=== PATIENT | female | born 1980 | race Caucasian/White ===

== ENCOUNTER 2016-07-09 20:35 | Emergency (ER) | payer BC ==
[~2016-07-09] VITALS: Ht 170.2 cm; Wt 65.0 kg
[~2016-07-09 20:35] MED LIST: IRON18TA2 IV; MULTLIQ7 IV; PERC5TAB12 PO; [UNRECOGNIZED DRUG - CODE] PO
[2016-07-09 20:37] VITALS: BP 141/95; PULSE 111; RESP 20; TEMP 97.8; O2SAT 97
[2016-07-09] MEDS ORDERED: SODIUM CHLOR 0.9% 1000 ML INJ 1,000 ML IV SCH (22:16)
--- NOTE | 2016-07-09 22:26 | PD ---
HPI Chief Complaint: Flank/Kidney Pain Time Seen by Provider: 22:02 Travel History International Travel<30 days: No Contact w/Intl Traveler<30days: No Traveled to known affect area: No History of Present Illness HPI 35yo F with PMH of nephrolithiasis and mitochondrial oxidative disease presents with c/o left back pain that radiates to left lower abdomen for a few days but worst in the last 2 hours. +Nausea. Denies any fever, vomiting, chest pain, sob, dysuria, hematuria, vaginal discharge or bleeding. 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) ?: Not : 10 Para: 3 Miscarriage: 7 Dilation and Curettage (D&C): Yes (X 1) Past Surgical History Abdominal Surgery: Yes (GASTRIC BYPASS) AICD: No Gynecologic Surgery: Yes (incompt cervix has had cerclage) Joint Replacement: No Pacemaker: No Other Surgery: Yes (Gastric bypass) Social History Alcohol Use: No Tobacco Use: No Substance Use: No Allergies-Medications (Allergen,Severity, Reaction): Coded Allergies: Contrast Media (Verified Allergy, Severe, ANAPHYLACTIC SHOCK, 07/11/16) IODINATED CONTRAST MEDIA Penicillin (Verified Allergy, Severe, Anaphylaxis, 07/11/16) Iodine (Verified Allergy, Unknown, 07/11/16) Reported Meds & Prescriptions Reported Meds & Active Scripts Active Zofran (Ondansetron HCl) 4 Mg Tab 4 Mg PO Q12HR PRN Flomax (Tamsulosin HCl) 0.4 Mg Cap 0.4 Mg PO HS 5 Days Percocet (Oxycodone-Acetaminophen) 5-325 mg Tab 1 Tab PO Q4H PRN Reported Propranolol (Propranolol HCl) 10 Mg Tab 10 Mg PO Q12HR Review of Systems Except as stated in HPI: all other systems reviewed are Neg Physical Exam Narrative GENERAL: 35yo F in mild distress. SKIN: Focused skin assessment warm/dry. HEAD: Atraumatic. Normocephalic. EYES: Pupils equal and round. No scleral icterus. No injection or drainage. CARDIOVASCULAR: Regular rate and rhythm. No murmur appreciated. RESPIRATORY: No accessory muscle use. Clear to auscultation. Breath sounds equal bilaterally. GASTROINTESTINAL: Abdomen soft, +TTP LLQ. No rebound tenderness or guarding. BACK: +CVA tenderness on left. MUSCULOSKELETAL: No obvious deformities. No clubbing. No cyanosis. No edema. NEUROLOGICAL: Awake and alert. No obvious cranial nerve deficits. Motor grossly within normal limits. Normal speech. PSYCHIATRIC: Appropriate mood and affect; insight and judgment normal. Data Data Last Documented VS Vital Signs Date Time Temp Pulse Resp B/P Pulse Ox O2 Delivery O2 Flow Rate FiO2 07/10/16 01:00 95 07/09/16 20:37 97.8 20 141/95 97 Room Air Orders Complete Blood Count With Diff (07/09/16 22:16) Comprehensive Metabolic Panel (07/09/16 22:16) Lipase (07/09/16 22:16) Urinalysis - C+S If Indicated (07/09/16 22:16) Ct Abd/Pel W/O Iv Contrast (07/09/16 22:16) Iv Access Insert/Monitor (07/09/16 22:16) Ecg Monitoring (07/09/16 22:16) Oximetry (07/09/16 22:16) Ondansetron Inj (Zofran Inj) (07/09/16 22:30) Sodium Chlor 0.9% 1000 Ml Inj (Ns 1000 M (07/09/16 22:16) Sodium Chloride 0.9% Flush (Ns Flush) (07/09/16 22:30) Ketorolac Inj (Toradol Inj) (07/09/16 22:30) Ed Urine Pregnancytest Poc (07/09/16 22:16) Morphine Inj (Morphine Inj) (07/09/16 23:30) Labs Laboratory Tests Test 07/09/16 07/09/16 22:30 23:45 Sodium Level 141 MEQ/L Potassium Level 3.8 MEQ/L Chloride Level 105 MEQ/L Carbon Dioxide Level 28.1 MEQ/L Anion Gap 8 MEQ/L Blood Urea Nitrogen 14 MG/DL Creatinine 0.65 MG/DL Estimat Glomerular Filtration 103 ML/MIN Rate Random Glucose 92 MG/DL Calcium Level 8.8 MG/DL Total Bilirubin 0.2 MG/DL Aspartate Amino Transf 16 U/L (AST/SGOT) Alanine Aminotransferase 23 U/L (ALT/SGPT) Alkaline Phosphatase 65 U/L Total Protein 7.3 GM/DL Albumin 3.9 GM/DL Lipase 308 U/L Urine Color YELLOW Urine Turbidity CLEAR Urine pH 5.5 Urine Specific [place] 1.024 Urine Protein TRACE mg/dL Urine Glucose (UA) NEG mg/dL Urine Ketones NEG mg/dL Urine Occult Blood NEG Urine Nitrite NEG Urine Bilirubin NEG Urine Urobilinogen LESS THAN 2.0 MG/DL Urine Leukocyte Esterase NEG Urine RBC 4 /hpf Urine WBC 1 /hpf Urine Squamous Epithelial 1 /hpf Cells Urine Mucus FEW /lpf Microscopic Urinalysis Comment CULT NOT INDICATED White Blood Count 6.5 TH/MM3 Red Blood Count 4.06 MIL/MM3 Hemoglobin 11.4 GM/DL Hematocrit 35.4 % Mean Corpuscular Volume 87.4 FL Mean Corpuscular Hemoglobin 28.1 PG Mean Corpuscular Hemoglobin 32.1 % Concent Red Cell Distribution Width 14.9 % Platelet Count 307 TH/MM3 Mean Platelet Volume 8.2 FL Neutrophils (%) (Auto) 57.6 % Lymphocytes (%) (Auto) 32.0 % Monocytes (%) (Auto) 7.0 % Eosinophils (%) (Auto) 2.4 % Basophils (%) (Auto) 1.0 % Neutrophils # (Auto) 3.8 TH/MM3 Lymphocytes # (Auto) 2.1 TH/MM3 Monocytes # (Auto) 0.5 TH/MM3 Eosinophils # (Auto) 0.2 TH/MM3 Basophils # (Auto) 0.1 TH/MM3 CBC Comment DIFF FINAL Differential Comment MDM Medical Decision Making Medical Screen Exam Complete: Yes Emergency Medical Condition: Yes Interpretation(s) Laboratory Tests Test 07/09/16 07/09/16 22:30 23:45 Sodium Level 141 MEQ/L (136-145) Potassium Level 3.8 MEQ/L (3.5-5.1) Chloride Level 105 MEQ/L (98-107) Carbon Dioxide Level 28.1 MEQ/L (21.0-32.0) Anion Gap 8 MEQ/L (5-15) Blood Urea Nitrogen 14 MG/DL (7-18) Creatinine 0.65 MG/DL (0.50-1.00) Estimat Glomerular Filtration 103 ML/MIN Rate (>89) Random Glucose 92 MG/DL (74-106) Calcium Level 8.8 MG/DL (8.5-10.1) Total Bilirubin 0.2 MG/DL (0.2-1.0) Aspartate Amino Transf 16 U/L (15-37) (AST/SGOT) Alanine Aminotransferase 23 U/L (10-53) (ALT/SGPT) Alkaline Phosphatase 65 U/L (45-117) Total Protein 7.3 GM/DL (6.4-8.2) Albumin 3.9 GM/DL (3.4-5.0) Lipase 308 U/L (73-393) Urine Color YELLOW (YELLW/STRAW) Urine Turbidity CLEAR (CLEAR) Urine pH 5.5 (5.0-8.5) Urine Specific [place] 1.024 (1.002-1.035) Urine Protein TRACE mg/dL (NEG-TRACE) Urine Glucose (UA) NEG mg/dL (NEG) Urine Ketones NEG mg/dL (NEG) Urine Occult Blood NEG (NEG) Urine Nitrite NEG (NEG) Urine Bilirubin NEG (NEG) Urine Urobilinogen LESS THAN 2.0 MG/DL (LESS THAN 2.0) Urine Leukocyte Esterase NEG (NEG) Urine RBC 4 /hpf (0-3) Urine WBC 1 /hpf (0-5) Urine Squamous Epithelial 1 /hpf (0-5) Cells Urine Mucus FEW /lpf (OCC) Microscopic Urinalysis Comment CULT NOT INDICATED White Blood Count 6.5 TH/MM3 (4.0-11.0) Red Blood Count 4.06 MIL/MM3 (4.00-5.30) Hemoglobin 11.4 GM/DL (11.6-15.3) Hematocrit 35.4 % (35.0-46.0) Mean Corpuscular Volume 87.4 FL (80.0-100.0) Mean Corpuscular Hemoglobin 28.1 PG (27.0-34.0) Mean Corpuscular Hemoglobin 32.1 % Concent (32.0-36.0) Red Cell Distribution Width 14.9 % (11.6-17.2) Platelet Count 307 TH/MM3 (150-450) Mean Platelet Volume 8.2 FL (7.0-11.0) Neutrophils (%) (Auto) 57.6 % (16.0-70.0) Lymphocytes (%) (Auto) 32.0 % (9.0-44.0) Monocytes (%) (Auto) 7.0 % (0.0-8.0) Eosinophils (%) (Auto) 2.4 % (0.0-4.0) Basophils (%) (Auto) 1.0 % (0.0-2.0) Neutrophils # (Auto) 3.8 TH/MM3 (1.8-7.7) Lymphocytes # (Auto) 2.1 TH/MM3 (1.0-4.8) Monocytes # (Auto) 0.5 TH/MM3 (0-0.9) Eosinophils # (Auto) 0.2 TH/MM3 (0-0.4) Basophils # (Auto) 0.1 TH/MM3 (0-0.2) CBC Comment DIFF FINAL Differential Comment Differential Diagnosis Nephrolithiasis vs. pyelonephritis vs. diverticulitis Narrative Course 35yo F with left flank pain that is worst for 2 hours. Labs reviewed, no leukocytosis. Creatinine normal at 0.65. UA showed 4 RBC. No leukocyte or nitrite. CTa/p showed moderate to severe hydronephrosis left kidney due to approximately 5mm left UVJ stone. Pt given toradol and zofran but didnt help with pain. Pt then given 6mg IV morphine and states pain has improved. Pt was able to urinate in the ED. Discussed with Dr. Dey who is the urologist translational specialist regarding the stone and hydronephrosis. State that she can follow up with him in the clinic next week as long as pain controlled. Pt's pain is currently control and is afebrile. Will try outpatient treatment and follow up first and instructed pt to return to the ED immediately if her pain is not control or she is not tolerating PO. Tolerating PO currently. Strict return precautions given. Diagnosis Primary Impression: Left ureteral stone Referrals: Dk Dey MD call for appointment Moderate to severe left hydronephrosis secondary to 5mm UVJ stone Patient Instructions: General Instructions Departure Forms: Tests/Procedures Additional Instructions: Please call Dr. Dey's office Tuesday and follow up with Dr. Dey on TuesdayJuly 12. Please return to the ED immediately if you have worsening symptoms, fever, cant keep anything down, or not urinating. Med/Other Pt SpecificInfo: Prescription(s) given Scripts Ondansetron (Zofran)4 Mg Tab4 Mg PO Q12HR PRN (NAUSEA OR VOMITING) #10 TAB Ref 0 Prov:Genet Mccall DO 07/10/16 Tamsulosin (Flomax)0.4 Mg Cap0.4 Mg PO HS 5 Days Ref 0 Prov:Genet Mccall DO 07/10/16 Oxycodone-Acetaminophen (Percocet)5-325 mg Tab1 Tab PO Q4H PRN (PAIN) #20 TAB Ref 0 Prov:Genet Mccall DO 07/10/16 Disposition: 01 DISCHARGE HOME Condition: Stable Genet Mccall DO Jul 09, 2016 22:26
[2016-07-09] MEDS ORDERED: ONDANSETRON HCL 4 MG/2 ML VIAL IVP ONE (22:30)
[2016-07-09] MEDS ORDERED: KETOROLAC TROMETHAMINE 30 MG/ML (IVP) VIAL IVP ONE (22:30)
[2016-07-09] MEDS ORDERED: SODIUM CHLORIDE 0.9% FLUSH 10 ML FLUSH IV FLUSH PRN (22:30)
[2016-07-09 23:19] LABS: BLOOD, URINE NEG (NEG); COMMENT (UR) CULT NOT INDICATED; CULTURE IF INDICATED CULT NOT INDICATED; GLUCOSE,URINE NEG (NEG); KETONE, URINE NEG (NEG); MUCUS URINE FEW /lpf (OCC); NITRITE,URINE NEG (NEG); PH, URINE 5.5 (5.0-8.5); SQUAMOUS EPITHELIAL CELL URINE 1 /hpf (0-5); URINE COLOR YELLOW (YELLW/STRAW)
[2016-07-09] MEDS ORDERED: MORPHINE SULFATE 8 MG/ML INJ IV PUSH ONE (23:30)
[2016-07-09 23:31] LABS: ALT (GPT) 23 U/L (10-53); ANION GAP 8 MEQ/L (5-15); AST (GOT) 16 U/L (15-37); BICARBONATE 28.1 MEQ/L (21.0-32.0); BLOOD UREA NITROGEN 14 MG/DL (7-18); CHLORIDE 105 MEQ/L (98-107); GLOMERULAR FILTRATION RATE 103 ML/MIN (>89); POTASSIUM 3.8 MEQ/L (3.5-5.1); SODIUM (NA) 141 MEQ/L (136-145)
[2016-07-09 23:33] LABS: ALKALINE PHOSPHATASE 65 U/L (45-117); TOTAL BILIRUBIN ADULT 0.2 MG/DL (0.2-1.0)
[2016-07-10 00:02] LABS: AUTOMATED NEUTROPHIL # 3.8 TH/MM3 (1.8-7.7); BASOPHIL # 0.1 TH/MM3 (0-0.2); EOSINOPHIL # 0.2 TH/MM3 (0-0.4); EOSINOPHIL % 2.4 % (0.0-4.0); HEMATOCRIT 35.4 % (35.0-46.0); HEMO FLAGS DIFF FINAL; LYMPHOCYTE # 2.1 TH/MM3 (1.0-4.8); MEAN CELL VOLUME 87.4 FL (80.0-100.0); MEAN CORPUSCULAR HEMOGLOBIN 28.1 PG (27.0-34.0); MEAN CORPUSCULAR HGB CONC 32.1 % (32.0-36.0); NEUT % 57.6 % (16.0-70.0); PLATELET COUNT 307 TH/MM3 (150-450); RED BLOOD COUNT 4.06 MIL/MM3 (4.00-5.30); RED CELL DISTRIBUTION WIDTH 14.9 % (11.6-17.2); WHITE BLOOD COUNT 6.5 TH/MM3 (4.0-11.0)
--- NOTE | 2016-07-10 00:06 | RADRPT ---
EXAM DATE/TIME: 07/09/2016 23:54 [facility] COMPARISON: No previous studies available for comparison. INDICATIONS : Left flank pain with nausea and vomiting. ORAL CONTRAST: No oral contrast ingested. RADIATION DOSE: 7.89 CTDIvol (mGy) MEDICAL HISTORY : Renal calculi. Hypertension. SURGICAL HISTORY : Gastric bypass. ENCOUNTER: Initial ACUITY: 3 days PAIN SCALE: 7/10 LOCATION: Left flank TECHNIQUE: Volumetric scanning of the abdomen and pelvis was performed. Using automated exposure control and ad justment of the mA and/or kV according to patient size, radiation dose was kept as low as reasonably achievable to obtain optimal diagnostic quality images. FINDINGS: CT Abdomen: There is moderate to severe hydronephrosis and hydroureter on the left side due to and ap proximate 5 mm left UVJ stone. There is evidence for prior gastric bypass. The liver, spleen, pancrea s, right kidney, adrenals are unremarkable. There is no evidence for any appreciable pathological brent nopathy, free fluid, or bowel obstruction. CT pelvis: There is no evidence for mass, abscess formation, or any significant adenopathy within the pelvis. CONCLUSION: Moderate to severe hydronephrosis left kidney due to approximate 5 mm left UVJ stone. Hiro Lopez MD on July 10, 2016 at 0:01 Board Certified Radiologist. This report was verified electronically.
[2016-07-10] MEDS ORDERED: ZOFR4TAB PO ×2 (00:38→00:47)
[2016-07-10] MEDS ORDERED: TAMS5CAP PO (00:38)
[2016-07-10] MEDS ORDERED: PERC5TAB12 PO (00:38)
[2016-07-10 01:00] VITALS: PULSE 95
[2016-07-11] MEDS ORDERED: PROP10TA6 PO (11:18)
== END 2016-07-10 01:55 | disposition home or self-care (01) ==
LOC: NEPD 20:35
DX: N13.2 Hydronephrosis with renal and ureteral calculous obstruction (principal); R11.0 Nausea; R10.9 Unspecified abdominal pain; D64.9 Anemia, unspecified; Z87.442 Personal history of urinary calculi
CPT/HCPCS: 74176; 80053; 81001; 83690; 84703; 85025; 96361; 96374; 96375; 99285; J1885; J2270; J2405; J7030

== ENCOUNTER 2016-07-11 09:48 | Emergency (ER) | payer BC ==
[~2016-07-11] VITALS: Ht 167.6 cm; Wt 70.0 kg
[~2016-07-11 09:48] MED LIST changes: -IRON18TA2 IV; -MULTLIQ7 IV; +TAMS5CAP PO; +ZOFR4TAB PO; -[UNRECOGNIZED DRUG - CODE] PO
[2016-07-11 09:50] VITALS: BP 123/77; PULSE 102; RESP 20; TEMP 98.5; O2SAT 96
[2016-07-11] MEDS ORDERED: SODIUM CHLOR 0.9% 1000 ML INJ 1,000 ML IV SCH (10:38)
[2016-07-11] MEDS ORDERED: KETOROLAC TROMETHAMINE 30 MG/ML (IVP) VIAL IVP ONE (10:45)
[2016-07-11] MEDS ORDERED: SODIUM CHLORIDE 0.9% FLUSH 10 ML FLUSH IV FLUSH PRN (10:45)
[2016-07-11] MEDS ORDERED: ONDANSETRON HCL 4 MG/2 ML VIAL IVP ONE (10:45)
[2016-07-11] MEDS ORDERED: MORPHINE SULFATE 8 MG/ML INJ IV PUSH ONE (10:45)
[2016-07-11] MEDS ORDERED: cefTRIAXone INJ 1,000 MG in SODIUM CHLORIDE 0.9% INJ 100 ML IV ONE (11:00)
--- NOTE | 2016-07-11 11:11 | PD ---
HPI Chief Complaint: Flank/Kidney Pain Time Seen by Provider: 10:20 Travel History International Travel<30 days: No Contact w/Intl Traveler<30days: No Traveled to known affect area: No History of Present Illness HPI 35 yo F c/o fever over past 12 hours associated with L flank pain which was diagnosed as an obstructive L UVJ stone with moderate to severe hydronephrosis here about 2 days prior. Zofran has been helping with nausea and no vomiting is reported. Temp max 102 at home. R flank pain has since evolved gradually. Timing constant. Severity moderate. 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) Tetanus Vaccination: < 5 Years Influenza Vaccination: No ?: Not LMP: 07/07/16 : 10 Para: 3 Miscarriage: 7 Dilation and Curettage (D&C): Yes (X 1) Past Surgical History Abdominal Surgery: Yes (GASTRIC BYPASS) AICD: No Cholecystectomy: Yes Gynecologic Surgery: Yes (incompt cervix has had cerclage) Joint Replacement: No Pacemaker: No Other Surgery: Yes (Gastric bypass) Social History Alcohol Use: No Tobacco Use: No Substance Use: No Allergies-Medications (Allergen,Severity, Reaction): Coded Allergies: Contrast Media (Verified Allergy, Severe, ANAPHYLACTIC SHOCK, 07/11/16) IODINATED CONTRAST MEDIA Penicillin (Verified Allergy, Severe, Anaphylaxis, 07/11/16) Iodine (Verified Allergy, Unknown, 07/11/16) Reported Meds & Prescriptions Reported Meds & Active Scripts Active Zofran (Ondansetron HCl) 4 Mg Tab 4 Mg PO Q12HR PRN Flomax (Tamsulosin HCl) 0.4 Mg Cap 0.4 Mg PO HS 5 Days Percocet (Oxycodone-Acetaminophen) 5-325 mg Tab 1 Tab PO Q4H PRN Reported Propranolol (Propranolol HCl) 10 Mg Tab 10 Mg PO Q12HR Review of Systems Except as stated in HPI: all other systems reviewed are Neg General / Constitutional: Positive: Fever, Chills Physical Exam Narrative GENERAL: 35 yo F, pleasant, moderate distress, wnwd SKIN: Warm and dry. HEAD: Atraumatic. Normocephalic. EYES: Pupils equal and round. No scleral icterus. No injection or drainage. ENT: No nasal bleeding or discharge. Mucous membranes pink and moist. NECK: Trachea midline. No JVD. CARDIOVASCULAR: Regular rate and rhythm. RESPIRATORY: No accessory muscle use. Clear to auscultation. Breath sounds equal bilaterally. GASTROINTESTINAL: Minimal TTP L flank and R flank. Abdomen soft. MUSCULOSKELETAL: Extremities without clubbing, cyanosis, or edema. No obvious deformities. NEUROLOGICAL: Awake and alert. No obvious cranial nerve deficits. Motor grossly within normal limits. Five out of 5 muscle strength in the arms and legs. Normal speech. PSYCHIATRIC: Appropriate mood and affect; insight and judgment normal. Data Data Last Documented VS Vital Signs Date Time Temp Pulse Resp B/P Pulse Ox O2 Delivery O2 Flow Rate FiO2 07/11/16 10:20 104 18 07/11/16 09:50 98.5 123/77 96 Room Air VS reviewed Orders Basic Metabolic Panel (Bmp) (07/11/16 10:38) Complete Blood Count With Diff (07/11/16 10:38) Urinalysis - C+S If Indicated (07/11/16 10:38) Iv Access Insert/Monitor (07/11/16 10:38) Ecg Monitoring (07/11/16 10:38) Oximetry (07/11/16 10:38) Ondansetron Inj (Zofran Inj) (07/11/16 10:45) Sodium Chlor 0.9% 1000 Ml Inj (Ns 1000 M (07/11/16 10:38) Sodium Chloride 0.9% Flush (Ns Flush) (07/11/16 10:45) Ketorolac Inj (Toradol Inj) (07/11/16 10:45) Morphine Inj (Morphine Inj) (07/11/16 10:45) Ceftriaxone Inj (Rocephin Inj) (07/11/16 11:00) Ed Urine Pregnancytest Poc (07/11/16 12:06) Labs Laboratory Tests Test 07/11/16 07/11/16 10:50 11:55 White Blood Count 4.7 TH/MM3 Red Blood Count 4.06 MIL/MM3 Hemoglobin 11.6 GM/DL Hematocrit 35.3 % Mean Corpuscular Volume 87.0 FL Mean Corpuscular Hemoglobin 28.6 PG Mean Corpuscular Hemoglobin 32.9 % Concent Red Cell Distribution Width 14.7 % Platelet Count 355 TH/MM3 Mean Platelet Volume 8.6 FL Neutrophils (%) (Auto) 61.4 % Lymphocytes (%) (Auto) 28.3 % Monocytes (%) (Auto) 6.5 % Eosinophils (%) (Auto) 2.8 % Basophils (%) (Auto) 1.0 % Neutrophils # (Auto) 2.9 TH/MM3 Lymphocytes # (Auto) 1.3 TH/MM3 Monocytes # (Auto) 0.3 TH/MM3 Eosinophils # (Auto) 0.1 TH/MM3 Basophils # (Auto) 0.0 TH/MM3 CBC Comment DIFF FINAL Differential Comment Sodium Level 141 MEQ/L Potassium Level 4.2 MEQ/L Chloride Level 107 MEQ/L Carbon Dioxide Level 29.0 MEQ/L Anion Gap 5 MEQ/L Blood Urea Nitrogen 11 MG/DL Creatinine 0.59 MG/DL Estimat Glomerular Filtration 115 ML/MIN Rate Random Glucose 82 MG/DL Calcium Level 8.2 MG/DL Urine Color LIGHT-YELLOW Urine Turbidity CLEAR Urine pH 5.5 Urine Specific [place] 1.003 Urine Protein NEG mg/dL Urine Glucose (UA) NEG mg/dL Urine Ketones NEG mg/dL Urine Occult Blood NEG Urine Nitrite NEG Urine Bilirubin NEG Urine Urobilinogen LESS THAN 2.0 MG/DL Urine Leukocyte Esterase NEG MDM Medical Decision Making Medical Screen Exam Complete: Yes Emergency Medical Condition: Yes Medical Record Reviewed: Yes Differential Diagnosis Septic stone, pyelonephritis, kidney injury, electrolyte imbalance Narrative Course CBC & BMP Diagram 07/11/16 10:50 POC negative UA: no UTI or hematuria Pt rested comfortably throughout ER stay. Work up is unremarkable and reassuring. Reassessment at 1240pm the patient is resting comfortably and feels better, is alert and in no distress. The patients results and examination findings were discussed. The repeat examination is unremarkable and benign. The history, exam , diagnostic testing, and current condition do not suggest any significant pathology to warrant further testing, continued ED treatment, admission, or surgical evaluation at this point. The vital signs have been stable. The patient does not have uncontrollable pain, intractable vomiting, or other significant symptoms. The patient's condition is stable and appropriate for discharge. The patient will pursue further outpatient evaluation with a primary care physician or other designated or consulting physician as indicated in the discharge instructions. The patient expressed understanding and was agreeable with this plan. Diagnosis Primary Impression: Left flank pain Referrals: Urologist 2 days Additional Instructions: You have a choice when it comes to health care, and we are glad that you chose [facility]. Hopefully, we have met your expectations on today's visit. You are welcome to return to [facility] at any time, as we are committed to meeting the health care needs of our community. Med/Other Pt SpecificInfo: No Change to Meds Disposition: 01 DISCHARGE HOME Condition: Bhaskar Meeks MD Jul 11, 2016 11:11
[2016-07-11] MEDS ORDERED: PROP10TA6 PO (11:18)
[2016-07-11 11:25] LABS: AUTOMATED NEUTROPHIL # 2.9 TH/MM3 (1.8-7.7); EOSINOPHIL # 0.1 TH/MM3 (0-0.4); EOSINOPHIL % 2.8 % (0.0-4.0); HEMATOCRIT 35.3 % (35.0-46.0); HEMO FLAGS DIFF FINAL; LYMPH % 28.3 % (9.0-44.0); LYMPHOCYTE # 1.3 TH/MM3 (1.0-4.8); MEAN CORPUSCULAR HEMOGLOBIN 28.6 PG (27.0-34.0); MEAN CORPUSCULAR HGB CONC 32.9 % (32.0-36.0); MONO % 6.5 % (0.0-8.0); NEUT % 61.4 % (16.0-70.0); PLATELET COUNT 355 TH/MM3 (150-450); RED BLOOD COUNT 4.06 MIL/MM3 (4.00-5.30); RED CELL DISTRIBUTION WIDTH 14.7 % (11.6-17.2); WHITE BLOOD COUNT 4.7 TH/MM3 (4.0-11.0)
[2016-07-11 11:45] LABS: POTASSIUM 4.2 MEQ/L (3.5-5.1)
[2016-07-11 12:15] LABS: BLOOD, URINE NEG (NEG); GLUCOSE,URINE NEG (NEG); KETONE, URINE NEG (NEG); NITRITE,URINE NEG (NEG); PH, URINE 5.5 (5.0-8.5); URINE COLOR LIGHT-YELLOW (YELLW/STRAW)
[2016-07-11 12:40] LABS: COMMENT (UR) CULT NOT INDICATED; CULTURE IF INDICATED CULT NOT INDICATED; SQUAMOUS EPITHELIAL CELL URINE 0-5 /hpf (0-5); WBC, URINE 0-2 /hpf (0-5)
[2016-07-11 12:41] LABS: COMMENT2 (UR) CULT NOT INDICATED
[2016-07-11 12:54] VITALS: BP 121/67; PULSE 74; RESP 20; O2SAT 99
== END 2016-07-11 13:23 | disposition home or self-care (01) ==
LOC: NEPD 09:48
DX: R10.9 Unspecified abdominal pain (principal)
CPT/HCPCS: 80048; 81001; 84703; 85025; 96365; 96375; 99284; J0696; J1885; J2270; J2405; J7030

== ENCOUNTER 2016-07-14 13:54 | Day surgery (SDC) | payer BC ==
[~2016-07-14] VITALS: Ht 166.4 cm; Wt 73.4 kg
[~2016-07-14 13:54] MED LIST changes: +FAMOTIDINE 20 MG/2 ML VIAL IV ONE; +LACTATED RINGER'S 1000 ML INJ 1,000 ML IV ONE; +PROP10TA6 PO
[2016-07-14] MEDS ORDERED: INSULIN HUMAN REGULAR 1,000 UNITS/10 ML VIAL SQ PRN (14:30)
[2016-07-14] MEDS ORDERED: SODIUM CHLORIDE 0.9% IV SCH (14:30)
[2016-07-14] MEDS ORDERED: SODIUM CHLORID 0.9% 500 ML IV PRN (14:30)
[2016-07-14] MEDS ORDERED: GENTAMICIN IV SCH (14:30)
[2016-07-14] MEDS ORDERED: METOPROLOL TARTRATE 25 MG TAB PO PRN (14:30)
[2016-07-14] MEDS ORDERED: LACTATED RINGER'S 1000 ML IV PRN (14:30)
[2016-07-14] MEDS ORDERED: CHLORHEXIDINE GLUCONATE 2 % 1 PACK (2 CLOTHS) TOPICAL PRN (14:30)
[2016-07-14] MEDS ORDERED: CO-EPOW PO (15:04)
[2016-07-14] MEDS ORDERED: VITATAB11 PO (15:04)
[2016-07-14] MEDS ORDERED: LEVE500 PO (15:04)
[2016-07-14] MEDS ORDERED: VITA100T54 PO (15:04)
[2016-07-14] MEDS ORDERED: LEVO330T PO (15:04)
[2016-07-14] MEDS ORDERED: TOPA25TA8 PO (15:04)
[2016-07-14 15:10] VITALS: BP 122/86; PULSE 86; RESP 20; TEMP 97; O2SAT 99
[2016-07-14] MEDS ORDERED: KETAMINE HCL 500 MG/5 ML VIAL ONE (16:52)
[2016-07-14] MEDS ORDERED: MIDAZOLAM HCL 5 MG/5 ML VIAL ONE (17:04)
[2016-07-14] MEDS ORDERED: DO NOT ADM ANY ANTICOAGULANT DRUGS PRN (17:35)
[2016-07-14 17:36] VITALS: TEMP 97.9
[2016-07-14] MEDS ORDERED: *MEPERIDINE 25 MG INJ VIAL PERIprocedural Use ONLY ONE (17:37)
[2016-07-14] MEDS ORDERED: MIDAZOLAM HCL 2 MG/2 ML VIAL ONE (17:47)
[2016-07-14] MEDS ORDERED: fentaNYL CITRATE 250 MCG/5 ML AMP ONE (17:48)
[2016-07-14] MEDS ORDERED: MORPHINE SULFATE 4 MG/ML INJ ONE (19:26)
[2016-07-14 20:00] VITALS: BP 109/63; PULSE 88; RESP 16; O2SAT 95
--- NOTE | 2016-07-15 12:46 | MP ---
cc: RANDY LYN MD DATE OF SURGERY: 07/14/2016 PREOPERATIVE DIAGNOSIS: 1. Left distal ureteral stone. 2. Left flank pain 3. History of malignant hyperthermia. 4. h/o kidney stones 5. h/o ESWL 6. s/p Gastric Bypass POSTOPERATIVE DIAGNOSIS: 1. Left distal ureteral stone. 2. Left flank pain 3. History of malignant hyperthermia. 4. h/o kidney stones 5. h/o ESWL 6. s/p Gastric Bypass PROCEDURE PERFORMED 1. Cystourethroscopy 2. Left ureteroscopy 3. Stone basket with the manipulation with removal SURGEON Nikolay Lyn. ANESTHESIA Spinal COMPLICATIONS None. ANTIBIOTICS: Preop antibiotics gentamicin 320 mg IV DRAINS: None. SPECIMENS: Left ureteral stone for analysis BLOOD LOSS Less than 5 ml's. DISPOSITION To recovery INDICATIONS The patient a 35-year-old female with history of malignant hyperthermia , gastric bypass,history of kidney stones who was seen the office yesterday with complaints of left flank pain, nausea and vomiting for one week. She has been in the emergency room twice in the last week and was found to have a 5 mm obstructing left ureteral stone at the UVJ. Due to her history of malignant hyperthermia, she was scheduled at the hospital for definitive treatment of her stone. After the risks, benefitsand alternatives were explained, the patient would like to proceed. Informed consent was obtained. DETAILS OF PROCEDURE: The patient was properly identified, brought back to the cystoscopy suite. She laid supine on cystoscopy table. Proper time-out was performed. Patient is then placed under spinal anesthetic. Due to risk of pneumonia, hypothermia. Antibiotics, Gentamicin 320 mg IV were given four hours before start of procedure. The patient was placed in the dorsolithotomy position, prepped, draped, sterile surgical fashion. Using rigid cystoscope I then passed into the bladder per urethra without any difficulty, her bladder was then carefully examined, there was no evidence of any bladder tumor stones, diverticula, trabeculations. Bladder did appear to be diffusely inflamed. Both the ureteral orifices were identified. No anatomic location. A guidewire and guidance fluoroscopy was then able to pass the wire up into the left kidney with out any difficulty. Of note I did not see the stone on the fluoroscopic image. Going alongside the wire, I then passed the semi-rigid ureteroscope just inside the left UVJ and came across the stone that was seen on CT scan. This of note was the only stone seen on CAT scan. Using a Zero tip basket was able to grasp stone and removed it in its entirety this and sent off for chemical analysis. The ureter appeared to be widely patent. There was minimal trauma therefore feel stone was needed to be kept in place. The patients bladder was then drained, this concluded the procedure, the patient was then sent to the Recovery Room in stable condition. She is able to be discharged home per PACU protocol follow up in 7 to 10 days. MD MARLEY Martinez/tammy /5:25 PM /12:14 PM MTDTomas
== END 2016-07-14 21:00 | disposition home or self-care (01) ==
LOC: HSDC 13:54
PROVIDERS: ATTEND Urology
DX: N20.1 Calculus of ureter (principal); G62.9 Polyneuropathy, unspecified; Z98.84 Bariatric surgery status; Z88.0 Allergy status to penicillin; Z91.041 Radiographic dye allergy status
CPT/HCPCS: 52330; 82370; 88300; C1769; J1580; J2175; J2250; J2270; J3010; J7120